=== PATIENT | female | born 1965 | race Caucasian/White ===

== ENCOUNTER 2020-04-03 09:06 | Outpatient (REF) | payer BC, SELFPAY | END 2020-04-03 09:07 | disposition home or self-care (01) | LOC: HO.LAB 09:06 | PROVIDERS: Visit Provider Internal Medicine | DX: Z20.828 Contact with and (suspected) exposure to other viral communicable diseases (principal) | CPT/HCPCS: 36415; 87635 ==

== ENCOUNTER 2020-07-19 09:04 | Outpatient (REF) | payer BC, SELFPAY | END 2020-07-19 09:05 | disposition home or self-care (01) | LOC: HO.LAB 09:04 | PROVIDERS: PCP Internal Medicine; Visit Provider Internal Medicine | DX: Z20.822 Contact with and (suspected) exposure to COVID-19 (principal) | CPT/HCPCS: 36415; C9803; U0003 ==

== ENCOUNTER 2020-09-07 14:02 | Outpatient (REF) | payer BC, SELFPAY | END 2020-09-07 14:03 | disposition home or self-care (01) | LOC: HO.LAB 14:02 | PROVIDERS: Visit Provider Internal Medicine | DX: Z20.822 Contact with and (suspected) exposure to COVID-19 (principal) | CPT/HCPCS: 36415; C9803; U0003; U0005 ==